=== PATIENT | male | born 1980 | race Caucasian/White ===

== ENCOUNTER → 2018-04-14 15:20 | Outpatient (CLI) | payer BC, SELFPAY ==
--- NOTE | 2018-04-14 15:22 | DI.RAD.S_ITS ---
PROCEDURE: XR LUMBAR SPINE MIN 4V INDICATIONS: lumbar strain TECHNIQUE: 5 views of the lumbar spine acquired. COMPARISON: None. FINDINGS: Bones: No fracture or focal osseous destruction. There is anatomic alignment. Mild narrowing of the L1-L2, as was the T12-L1 disc spaces. The remaining disc spaces are grossly preserved. There is lower lumbar facet arthropathy from L4-S1. Mild bilateral hip joint degeneration. Soft tissues: Overlying bowel gas pattern is normal. No suspicious soft tissue calcifications. Flexion/extension: No evidence of abnormal motion with flexion and extension views. 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 No fracture. No evidence of abnormal motion. Dictated by: Bi Chavez M.D. on 04/14/2018 at 16:57 Approved by: Bi Chavez M.D. on 04/14/2018 at 16:59
== END ==
PROVIDERS: Visit Provider Family Medicine
DX: M51.36 Other intervertebral disc degeneration, lumbar region (principal)
CPT/HCPCS: 72110

== ENCOUNTER → 2021-06-29 14:10 | Outpatient (CLI) | payer BC, SELFPAY ==
[2021-06-29 15:07] LABS: Add Manual Diff / Slide Review NO; Basophils Absolute Auto 0 /uL (0-100); Basophils Percent Auto 0.6 % (0-2); Eosinophils Absolute Auto 0 /uL (0-450); Eosinophils Percent Auto 0.2 % (2-4); Hematocrit 44.8 % (41-53); Hemoglobin 14.8 g/dL (13.5-17.5); Lymphocytes Absolute Auto 1500 /uL (1100-4500); Lymphocytes Percent Auto 25.7 % (25-40); Mean Corpuscular HGB Conc 33.1 % (30-36); Mean Corpuscular Hemoglobin 30.8 PG (26-34); Monocytes Absolute Auto 500 /uL (0-900); Monocytes Percent Auto 9.2 % (3-14); Neutrophils Absolute Auto 3800 /uL (1500-7000); Neutrophils Percent Auto 64.3 % (50-75); Platelet Count 245 X10^3/uL (150-400); Red Blood Cell Count 4.81 X10^6/uL (4.5-5.9); White Blood Cell Count 5.9 X10^3/uL (4.5-11.0)
[2021-06-29 15:42] LABS: Alanine Aminotransferase 29 IU/L (<50); Albumin 4.4 g/dL (3.5-5.0); Albumin Globulin Ratio 1.5 (1.0-2.8); Alkaline Phosphatase 58 U/L (38-126); Aspartate Aminotransferase 30 IU/L (17-59); BUN Creatinine Ratio 18.4 (6-22); Blood Urea Nitrogen 18 mg/dL (9-20); Calcium 9.7 mg/dL (8.4-10.2); Carbon Dioxide 32 mmol/L (22-32); Chloride 106 mmol/L (98-107); Estimated Glomerular Filt Rate > 60.0 mL/min (>60); Glucose 88 mg/dL (70-100); HEMOLYSIS < 15 (0-50); Potassium 4.6 mmol/L (3.4-5.1); Sodium 142 mmol/L (137-145); Total Protein 7.4 g/dL (6.3-8.2)
== END ==
PROVIDERS: PCP Internal Medicine; Referring Provider Internal Medicine; Visit Provider Internal Medicine
DX: R00.2 Palpitations (principal)
CPT/HCPCS: 36415; 80053; 84443; 85025

== ENCOUNTER → 2021-07-18 14:28 | Outpatient (CLI) | payer BC, SELFPAY ==
--- NOTE | 2021-08-09 08:45 | PM.CARDMON.1 ---
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 Referral & Results Date Patient Seen: 07/18/21 Requesting provider: Kennedy Vasques Indication: Palpitations Duration of monitoring (days): 8 Diary information: There were 7 patient triggered events and no patient diary entries Patient triggered events were variably associated with (within 45 seconds) sinus rhythm, PVCs, ventricular bigeminy and ventricular trigeminy Data: Minimum heart rate identified was 50 beats per minute at 00:35 on 07/21/2021 Maximum heart rate was 123 beats per minute at 21:22 on 07/21/2021 Less than 1% of identified beats were supraventricular ectopic in origin which would classify them as rare Approximately 15.8% of identified beats were ventricular ectopic in origin which classifies them as frequent. This included a 4 minute 22nd run of ventricular trigeminy and 28.2nd run of ventricular bigeminy No other significant dysrhythmias identified Impression: Patient with frequent PVCs
== END ==
PROVIDERS: PCP Internal Medicine; Referring Provider Internal Medicine; Visit Provider Internal Medicine
DX: R00.2 Palpitations (principal)
CPT/HCPCS: 93242; 93244

== ENCOUNTER → 2021-08-13 11:58 | Outpatient (CLI) | payer BC, SELFPAY ==
--- NOTE | 2021-08-13 12:01 | DI.RAD.S_ITS ---
PROCEDURE: XR RIBS LT 2V INDICATIONS: LEFT LATERAL RIB PAIN TECHNIQUE: 2 views of the left ribs were acquired. COMPARISON: None. FINDINGS: Surgical changes and devices: None. Bones and chest wall: No fractures or dislocations. No suspicious bony lesions. Overlying soft tissues appear unremarkable. Lungs and pleura: The visualized lung appears clear. No pleural effusions or pneumothorax are visible. IMPRESSION: No acute osseous abnormality. Dictated by: Joon Lee M.D. on 08/13/2021 at 12:29 Approved by: Joon Lee M.D. on 08/13/2021 at 12:30
== END ==
PROVIDERS: PCP Internal Medicine; Referring Provider Chiropractor; Visit Provider Chiropractor
DX: R07.81 Pleurodynia (principal)
CPT/HCPCS: 71100

== ENCOUNTER → 2021-09-24 14:54 | Outpatient (CLI) | payer BC, SELFPAY ==
--- NOTE | 2021-09-24 14:54 | DI.ECHO.S_ITS ---
[facility]---------+ [facility] +---------+ : : [address] : [address] : : : : [id number] : : : : Phone: [phone]---------+ Echocardiogram Report + + :Name: CAREN FIELD V Study Date: 09/24/2021 Height: 72 in : :[facility] ReadingLocation: Weight: 195 lb : : Gender: Male BSA: 2.1 m2 : :: 1980 Age: 41 yrs BP: 128/89 mmHg: :Reason For Study: ARRHYTHMIA : :Ordering Physician: SANDRA, : :SAMAN Rose Performed By: Kemi Jean : :Referring: SAMAN FLORES : + + Interpretation Summary The ejection fraction is estimated to be 55-60%. There is no significant valvular heart disease. Procedure: A two-dimensional transthoracic echocardiogram with color flow and Doppler was performed. The study quality was technically adequate. There is no prior echocardiogram noted for this patient. The patient was in sinus rhythm with heart rates between 65-78 bpm during the exam. Left Ventricle: The left ventricle is normal in size and wall thickness. The ejection fraction is estimated to be 55-60%. Left ventricular wall motion is normal. Right Ventricle: The right ventricle is normal in size and function. Atria: The left atrial size is normal. Right atrial size is normal. There is no Doppler evidence for an interatrial shunt. Mitral Valve: The mitral valve is normal in structure and function. There is trace mitral regurgitation. Aortic Valve: The aortic valve is grossly normal. The aortic valve opens well. There is no aortic valve stenosis. No aortic regurgitation is present. Tricuspid Valve: The tricuspid valve is normal in structure and function. No tricuspid regurgitation. Pulmonic Valve: The pulmonic valve is not well visualized. There is no pulmonic valvular regurgitation. Great Vessels: The aortic root is normal size. The dimensions of the ascending aorta are normal. The IVC is of normal diameter and collapses greater than 50% with a sniff. This suggests a low right atrial pressure of 3 mm Hg. Pericardium/ Pleura There is no pericardial effusion. There is no pleural effusion. MMode/2D Measurements & Calculations LVIDd: 4.2 cm LVOT diam: 2.1 cm LVIDs: 3.1 cm Ao root diam: 3.0 cm FS: 24.6 % asc Aorta Diam: 2.7 cm IVSd: 0.83 cm Ao Arch Diam (Prox Trans): 2.2 cm LVPWd: 0.74 cm LV walker. diameter/BSA (cm/m^2): 2.0 LV sys. diameter/BSA (cm/m^2): 1.5 LA A2 area: 24.1 cm2 RA long axis: 4.6 cm LA A4 area: 15.2 cm2 RA area: 14.1 cm2 LA length (vol): 4.9 cm RA vol: 36.3 ml LA vol: 63.8 ml RA : 17.2 ml/m2 LA vol index: 30.3 ml/m2 IVC diam: 1.7 cm RVD1 (basal): 3.5 cm RVD2 (mid): 3.5 cm TAPSE: 1.7 cm Doppler Measurements & Calculations Ao V2 max: 108.4 cm/sec LVOT Max Sarthak: 80.3 cm/sec Ao V2 mean: 71.2 cm/sec LV V1 max P.6 mmHg Ao max P.7 mmHg LV V1 VTI: 17.7 cm Ao mean P.3 mmHg TYLER(I,D): 3.2 cm2 Ao V2 VTI: 20.0 cm TYLER(V,D): 2.7 cm2 sev ratio: 0.88 TYLER indexed to BSA (cm^2/m^2): 1.5 MV E max sarthak: 54.9 cm/sec PA V2 max: 119.0 cm/sec MV A max sarthak: 48.7 cm/sec PA V2 mean: 79.7 cm/sec MV E/A: 1.1 PA mean P.0 mmHg Med Peak E' Sarthak: 10.2 cm/sec PA pr(Accel): 8.8 mmHg E/E' med: 5.4 Lat Peak E' Sarthak: 14.4 cm/sec E/E' lat: 3.8 E/e' average: 4.6 MV dec time: 0.18 sec SV(LVOT): 64.3 ml Reading Physician:06:30 PM
== END ==
PROVIDERS: PCP Internal Medicine; Referring Provider Internal Medicine; Visit Provider Internal Medicine
DX: I49.9 Cardiac arrhythmia, unspecified (principal)
CPT/HCPCS: 93306

== ENCOUNTER → 2023-08-05 09:59 | Outpatient (CLI) | payer BC, SELFPAY ==
--- NOTE | 2023-08-05 | DI.CT.S_ITS ---
PROCEDURE: CT FACIAL BONES WO CON INDICATIONS: CHRONIC PANSINUSITIS TECHNIQUE: Noncontrast 2 mm thick axial images acquired from the mandible through the frontal sinuses, with coronal and sagittal reformatting. Additional 0.6 mm axial images are reformatted, with 6 mm coronal and sagittal images. For radiation dose reduction, the following was used: automated exposure control, adjustment of mA and/or kV according to patient size. COMPARISON: None. FINDINGS: Image quality: Excellent. Bones and teeth: Orbital julien are intact. No facial bone fractures are seen. There is absence of portions of the medial julien of the maxillary sinuses, as on series 4, image 30, which is attributed to prior postoperative change. Nasal bones and septum are intact. Visualized portions of the mandible demonstrate no fractures or subluxation. Zygomatic arches are intact. Pterygoid plates are intact. Visualized portions of the skull base and auditory canals are intact. Sinuses: There is a likely mucous retention cyst along the inferior aspect of the left maxillary sinus, as on series 4, image 28. The paranasal sinuses are otherwise unremarkable. Mastoid air cells are aerated. Soft tissues: No edema, masses, or fluid collections. No enlarged lymph nodes. No soft tissue lacerations or debris. Vascular: Visualized vascular structures appear normal in the absence of contrast. Bony vascular foramina and canals are intact. IMPRESSION: No significant active paranasal sinus disease is seen. Apparent postoperative change of the medial julien of the maxillary sinuses. Dictated by: Diogenes Akers M.D. on 08/05/2023 at 10:56 Approved by: Diogenes Akers M.D. on 08/05/2023 at 10:58
== END ==
PROVIDERS: PCP Internal Medicine; Referring Provider Otolaryngology; Visit Provider Otolaryngology
DX: J32.4 Chronic pansinusitis (principal)
CPT/HCPCS: 70486

== ENCOUNTER → 2024-02-24 09:22 | Outpatient (CLI) | payer BC, SELFPAY ==
[2024-02-24 11:08] LABS: Free T4, Direct Thyroxine 1.19 ng/dL (0.78-2.19)
[2024-02-24 11:13] LABS: Alanine Aminotransferase 36 IU/L (<50); Albumin 4.5 g/dL (3.5-5.0); Albumin Globulin Ratio 1.5 (1.0-2.8); Alkaline Phosphatase 60 U/L (38-126); Aspartate Aminotransferase 34 IU/L (17-59); BUN Creatinine Ratio 17.4 (6-22); Bilirubin Total 1.5 mg/dL (0.2-1.3); Blood Urea Nitrogen 16 mg/dL (9-20); Calcium 9.4 mg/dL (8.4-10.2); Carbon Dioxide 28 mmol/L (22-32); Chloride 106 mmol/L (98-107); Cholesterol 194 mg/dL (140-199); Estimated Glomerular Filt Rate > 60 mL/min (>60); Glucose 90 mg/dL (70-100); HDL Cholesterol 86 mg/dL (40-60); HEMOLYSIS < 15 (0-50); LDL Cholesterol Calculated 97 mg/dL (<100); Potassium 4.1 mmol/L (3.4-5.1); Sodium 138 mmol/L (137-145); Total Protein 7.5 g/dL (6.3-8.2); Triglycerides 54 mg/dL (35-150)
[2024-02-24 11:22] LABS: Thyroid Stimulating Hormone 1.49 uIU/mL (0.47-4.68)
== END ==
PROVIDERS: PCP Internal Medicine; Referring Provider Internal Medicine; Visit Provider Internal Medicine
DX: Z13.6 Encounter for screening for cardiovascular disorders (principal); Z13.1 Encounter for screening for diabetes mellitus; Z13.220 Encounter for screening for lipoid disorders; E03.9 Hypothyroidism, unspecified
CPT/HCPCS: 36415; 80053; 80061; 84439; 84443

== ENCOUNTER → 2025-05-04 13:23 | Outpatient (CLI) | payer BC, SELFPAY ==
--- NOTE | 2025-05-04 13:24 | DI.US.S_ITS ---
PROCEDURE: US SCROTUM INDICATIONS: 45 y/o M w/ 1cm left spermatocele, please confirm TECHNIQUE: Real-time scanning was performed of the scrotum and testicles, with image documentation. Color and pulse Doppler interrogation was performed of both testicles. COMPARISON: None. FINDINGS: Right: Testicle is normal in size at 3.6 x 2.4 x 2.8 cm, and homogenous in echotexture. Epididymis is normal in overall size and morphology. No hydrocele or varicoceles. Overlying scrotal skin is normal in thickness. Left: Testicle is normal in size at 3.9 x 2.0 cm, and homogeneous in echotexture. Epididymis is normal in overall size and morphology. There is no hydrocele. There is a small left varicocele. Overlying scrotal skin is normal in thickness. Doppler: Color and pulse Doppler demonstrate normal and symmetric arterial flow in both testicles. IMPRESSION: Small left varicocele. Dictated by: Bing Vargas M.D. on 05/04/2025 at 14:24 Approved by: Bing Vargas M.D. on 05/04/2025 at 14:27
== END ==
LOC: US 13:23
PROVIDERS: PCP Internal Medicine; Referring Provider Urology; Visit Provider Urology
DX: N43.40 Spermatocele of epididymis, unspecified (principal); I86.1 Scrotal varices
CPT/HCPCS: 76870; 93975